=== PATIENT | female | born 1960 | race African-American/Black ===

== ENCOUNTER 2017-07-12 00:29 | Emergency (ER) | payer OTHER ==
[2017-07-12] MEDS ORDERED: HYDROCODONE/APAP (5/325) TAB PO (06:30)
[2017-07-12] MEDS: IBUPROFEN 800 MG TAB PO (06:34)
== END 2017-07-12 09:27 | disposition home or self-care (01) ==
LOC: FTE 00:29
DX: S92.512A Displaced fracture of proximal phalanx of left lesser toe(s), initial encounter for closed fracture (principal); W22.8XXA Striking against or struck by other objects, initial encounter; Y92.9 Unspecified place or not applicable
CPT/HCPCS: 73630; 73630-LT; 99283-25